=== PATIENT | female | born 1995 | race Caucasian/White ===

== ENCOUNTER → 2018-03-04 | Outpatient (CLI) | payer MEDICAID | LOC: FIMAGING 11:01 | PROVIDERS: ATTEND Obstetrics & Gynecology | DX: O26.32 Retained intrauterine contraceptive device in pregnancy, second trimester (principal); O99.112 Other diseases of the blood and blood-forming organs and certain disorders involving the immune mechanism complicating pregnancy, second trimester; O26.612 Liver and biliary tract disorders in pregnancy, second trimester; D69.6 Thrombocytopenia, unspecified; R74.0 Nonspecific elevation of levels of transaminase and lactic acid dehydrogenase [LDH]; Z3A.15 15 weeks gestation of pregnancy ==

== ENCOUNTER → 2018-04-01 | Outpatient (CLI) | payer MEDICAID | LOC: FIMAGING 07:28 | PROVIDERS: ATTEND Midwife | DX: O26.32 Retained intrauterine contraceptive device in pregnancy, second trimester (principal); O34.219 Maternal care for unspecified type scar from previous cesarean delivery; Z3A.19 19 weeks gestation of pregnancy ==

== ENCOUNTER → 2018-05-01 | Outpatient (CLI) | payer MEDICAID | LOC: FIMAGING 13:35 | PROVIDERS: ATTEND Obstetrics & Gynecology | DX: O09.522 Supervision of elderly multigravida, second trimester (principal); O26.32 Retained intrauterine contraceptive device in pregnancy, second trimester; Z3A.23 23 weeks gestation of pregnancy ==